=== PATIENT | female | born 1990 | race Caucasian/White ===

== ENCOUNTER 2024-10-30 11:56 | Emergency (ER) | payer OTHER ==
[~2024-10-30] VITALS: Ht 167.6 cm; Wt 76.0 kg
[2024-10-30 11:59] VITALS: TEMP 36.9; O2SAT 99
[2024-10-30] MEDS ORDERED: ACETAMINOPHEN 325MG TABLET PO ONE (12:45)
[2024-10-30] MEDS ORDERED: KEPP500 MT (12:52)
[2024-10-30] MEDS: LEVETIRACETAM 500MG PREMIX 100 ML IV ONE (13:26)
[2024-10-30] MEDS: SODIUM CHLORIDE 0.9% 1,000 ML IV ONE (13:26)
[2024-10-30 13:48] LABS: BASOPHILS % 0.4 % (0.0-2.0); DIFFERENTIAL COMMENT 0; EOSINOPHILS % 0.3 % (0.0-5.0); HEMATOCRIT. 34.9 % (36.0-48.0); HEMOGLOBIN. 11.2 g/dL (12.0-16.0); LYMPHOCYTES % 15.9 % (20.0-50.0); MEAN CORPUSCULAR HEMOGLOBIN 25.7 pg (28.0-32.0); MEAN CORPUSCULAR HGB CONC 32.2 g/dL (31.0-37.0); MEAN CORPUSCULAR VOLUME 79.8 fL (81.0-99.0); MEAN PLATELET VOLUME 7.8 fl (7.4-10.4); MONOCYTES % 5.5 % (2.0-8.0); NEUTROPHILS % 77.9 % (40.0-76.0); PLATELET 257 x1000/uL (130-400); RED BLOOD CELL COUNT 4.37 mill/uL (4.2-5.4); RED CELL DISTRIBUTION WIDTH 17.8 % (11.6-14.6); WHITE BLOOD COUNT 9.4 x1000/uL (4.5-11.0)
[2024-10-30 14:15] LABS: CHLORIDE 111 mEq/L (98-107); POTASSIUM 3.9 mEq/L (3.5-5.1); SODIUM 141 mEq/L (136-145)
[2024-10-30 14:16] LABS: CALCIUM 8.8 mg/dL (8.7-10.4); CARBON DIOXIDE 23 mEq/L (21-32)
[2024-10-30 14:21] LABS: CREATININE 0.6 mg/dL (0.6-1.0); GLUCOSE 94 mg/dL (70-105)
[2024-10-30 14:22] LABS: HCG SCREEN NEGATIVE; UREA NITROGEN BLOOD 6 mg/dL (9-23)
[2024-10-30 14:23] LABS: ALANINE AMINOTRANSFERASE 24 IU/L (10-49); ASPARTATE AMINOTRANSFERASE 26 IU/L (<34)
[2024-10-30 14:24] LABS: BILIRUBIN TOTAL 0.3 mg/dL (0.1-1.0); PROTEIN TOTAL 5.6 g/dL (6.0-8.3)
[2024-10-30 14:41] LABS: BILIRUBIN DIRECT < 0.1 mg/dL (<=3.0); TROPONIN I HIGH SENSITIVITY < 4 ng/L (3.0-34)
[2024-10-30 14:42] LABS: ETHANOL BLOOD < 10 mg/dL (<10)
[2024-10-30] MEDS: ACETAMINOPHEN 1000MG/100ML 100 ML IV ONE (15:28)
[2024-10-30 16:00] VITALS: BP 99/59; PULSE 77; RESP 14; O2SAT 97
== END 2024-10-30 16:21 | disposition home or self-care (01) ==
LOC: ER 12:07
DX: R56.9 Unspecified convulsions (principal)
CPT/HCPCS: 80076; 80048; 80320; 84703; 85025; 84484; 36415; 71045; 93005; 96367; 96365; 99285; J1953; J7030; G0480; J0131

== ENCOUNTER 2025-01-27 13:57 | Emergency (ER) | payer OTHER ==
[~2025-01-27] VITALS: Ht 167.6 cm; Wt 55.0 kg
[~2025-01-27 13:57] MED LIST: KEPP500 MT
[2025-01-27 14:00] VITALS: BP 108/73; PULSE 94; RESP 16; TEMP 37; O2SAT 100
[2025-01-27] MEDS: ACETAMINOPHEN 500MG TABLET PO ONE (15:01)
[2025-01-27] MEDS: LEVETIRACETAM 500MG TABLET PO ONE (15:01)
[2025-01-27] MEDS ORDERED: KEPP500 MT (15:05)
== END 2025-01-27 15:38 | disposition home or self-care (01) ==
LOC: ER 13:57
DX: R56.9 Unspecified convulsions (principal); Z76.0 Encounter for issue of repeat prescription; Z59.01 Sheltered homelessness
CPT/HCPCS: 99283

== ENCOUNTER 2025-04-30 11:03 | Emergency (ER) | payer OTHER ==
[~2025-04-30] VITALS: Ht 162.6 cm; Wt 68.0 kg
[2025-04-30 11:04] VITALS: O2SAT 100
[2025-04-30] MEDS ORDERED: KEPP500 MT (11:13)
[2025-04-30 11:37] LABS: BASOPHILS % 0.5 % (0.0-2.0); EOSINOPHILS % 3.1 % (0.0-5.0); HEMATOCRIT. 36.7 % (36.0-48.0); HEMOGLOBIN. 12.0 g/dL (12.0-16.0); LYMPHOCYTES % 23.9 % (20.0-50.0); MEAN PLATELET VOLUME 7.7 fl (7.4-10.4); MONOCYTES % 8.8 % (2.0-8.0); NEUTROPHILS % 63.7 % (40.0-76.0); PLATELET 280 x1000/uL (130-400); RED BLOOD CELL COUNT 4.51 mill/uL (4.2-5.4); RED CELL DISTRIBUTION WIDTH 15.3 % (11.6-14.6)
[2025-04-30] MEDS: LACTATED RINGERS 1,000 ML IV SCH (11:46)
[2025-04-30] MEDS: LEVETIRACETAM 500MG PREMIX 100 ML IV ONE ×2 (11:46→12:16)
[2025-04-30 11:55] LABS: CREATININE 0.6 mg/dL (0.6-1.0); UREA NITROGEN BLOOD 9 mg/dL (9-23)
[2025-04-30 11:57] LABS: ASPARTATE AMINOTRANSFERASE 21 IU/L (<34); BILIRUBIN TOTAL 0.3 mg/dL (0.1-1.0); PROTEIN TOTAL 6.5 g/dL (6.0-8.3)
[2025-04-30 12:05] LABS: HCG SCREEN NEGATIVE
[2025-04-30 12:50] VITALS: BP 116/68; PULSE 84; RESP 17; TEMP 36.7; O2SAT 100
== END 2025-04-30 13:17 | disposition home or self-care (01) ==
LOC: ER 11:03
DX: R56.9 Unspecified convulsions (principal); F41.9 Anxiety disorder, unspecified
CPT/HCPCS: 99284; 96365; 80053; 84703; 85025; 36415; 93005; J1953